=== PATIENT | male | born 1965 | race Caucasian/White ===

== ENCOUNTER 2018-07-16 08:31 | Emergency (ER) | payer OTHER ==
[2018-07-16 08:43] VITALS: BP 152/87
--- NOTE | 2018-07-17 08:16 | UC ---
Discharge - Sign-Out/Discharge Documenting (check all that apply): Post-Discharge Follow Up All imaging exams completed and their final reports reviewed: No Studies - Discharge Plan Disposition: LEFT WITHOUT BEING SEEN Referrals: Ulisses Middleton MD [Primary Care Provider] - - Billing Disposition and Condition Disposition: Left Without Being Seen
== END 2018-07-16 08:48 | disposition left against medical advice (07) ==
LOC: UCEAST 08:31
DX: Z53.21 Procedure and treatment not carried out due to patient leaving prior to being seen by health care provider (principal)

== ENCOUNTER 2023-05-07 07:55 | Inpatient (IN) ==
[2023-05-07 08:28] LABS: ABS Basophils 0.1 10^3/uL (0.0-0.1); ABS Eosinophils 0.1 10^3/uL (0.0-0.5); ABS Lymphocytes 1.1 10^3/uL (1.0-4.8); ABS Monocytes 0.5 10^3/uL (0.0-1.1); ABS Neutrophils 4.3 10^3/uL (1.5-7.6); Eosinophil % 2.3 %; Hematocrit 45.3 % (38-53); Hemoglobin 16.1 g/dL (13.2-16.3); Lymphocyte % 18.7 %; Mean Corpuscular Hemoglobin 34.1 pg (27-33); Mean Corpuscular Hgb Conc 35.6 g/dL (31-36); Mean Corpuscular Volume 95.8 fL (80-97); Mean Platelet Volume 8.5 fL (7.5-11.2); Nucleated Red Blood Cells % 0.1 /100 WBC (0.0-0.4); Platelet Count 186 10^3/uL (150-450); Red Blood Count 4.72 10^6/uL (4.06-5.63); Red Cell Distribution Width 12.6 % (12-17); White Blood Count 6.1 10^3/uL (3.6-10.2)
[2023-05-07 08:31] LABS: INR 1.03 (0.83-1.13)
[2023-05-07 08:37] LABS: Albumin 4.2 g/dL (3.2-5.2); Potassium 3.6 mmol/L (3.5-5.0); Total Bilirubin 0.8 mg/dL (0.2-1.0)
[2023-05-07 08:43] LABS: Albumin/Globulin Ratio 1.3 (1-3); Creatinine, Serum 0.98 mg/dL (0.67-1.17); Globulin 3.3 g/dL (2-4); Total Protein 7.5 g/dL (6.4-8.9); eGFR CKD-EPI 88.8 (>60)
[2023-05-07] MEDS ORDERED: Heparin DRIP 25,000 UNITS BAG 25,000 UNITS/500 ML BAG IV SCH (09:15)
[2023-05-07 09:55] LABS: High Sensitivity Troponin 1 Hr 746 pg/mL (<20)
[2023-05-07] MEDS ORDERED: Heparin 5000 UNITS/ML 1 mL VIAL IV SCH (10:00)
[2023-05-07] MEDS ORDERED: nitroGLYCERIN DRIP 25,000 MCG/250 ML BTL IV SCH (10:00)
[2023-05-07] MEDS ORDERED: fentaNYL 100 mcg/2 ml 50 MCG/ML VIAL IV SLOW PU ONE (11:10)
[2023-05-07] MEDS ORDERED: Midazolam 10 mg/10 ml VIAL 1 mg/ml 10 ml VIAL (10 mg) IV SLOW PU ONE (11:10)
[2023-05-07] MEDS ORDERED: Midazolam 5 mg/5 ml VIAL 1 mg/ml 5 ml VIAL (5 mg) ONE (11:28)
[2023-05-07] MEDS ORDERED: Heparin 2 UNITS/ML 1000 mls 2,000 ML IV ONE (11:29)
[2023-05-07] MEDS ORDERED: Heparin 1,000 UNIT/ML 10 ml (10,000 UNITS) CATHLAB/DIALYSIS ONE (11:29)
[2023-05-07] MEDS ORDERED: Iohexol 350 (CONTRAST) 100 ML PAK IV ONE (11:29)
[2023-05-07] MEDS ORDERED: fentaNYL 100 mcg/2 ml 50 MCG/ML VIAL ONE (11:29)
[2023-05-07] MEDS ORDERED: Lidocaine 1% MPF 5 ML VIAL ONE (11:29)
[2023-05-07] MEDS ORDERED: VERAPAMIL 2.5 MG/ML 2 ML VIAL ** 5 mg/2 ml ONE (11:29)
[2023-05-07] MEDS ORDERED: Iohexol 350 (CONTRAST) 200 ML MDV IV ONE (11:30)
[2023-05-07] MEDS ORDERED: Bivalirudin 250 MG VIAL ONE ×2 (12:16→13:05)
[2023-05-07] MEDS ORDERED: NS 0.9% 1000 ml BAG 1,000 ML IV SCH (13:30)
[2023-05-07] MEDS: Enoxaparin 40 MG/0.4 ML SYR SUBCUT SCH (20:31)
[2023-05-08 04:18] LABS: ABS Basophils 0.1 10^3/uL (0.0-0.1); ABS Eosinophils 0.2 10^3/uL (0.0-0.5); ABS Lymphocytes 1.6 10^3/uL (1.0-4.8); ABS Monocytes 0.9 10^3/uL (0.0-1.1); ABS Neutrophils 5.2 10^3/uL (1.5-7.6); Eosinophil % 2.9 %; Hematocrit 42.3 % (38-53); Lymphocyte % 19.9 %; Mean Corpuscular Hemoglobin 34.2 pg (27-33); Mean Corpuscular Hgb Conc 35.6 g/dL (31-36); Mean Platelet Volume 8.6 fL (7.5-11.2); Platelet Count 174 10^3/uL (150-450); Red Cell Distribution Width 12.8 % (12-17)
[2023-05-08 04:31] LABS: Calcium 8.5 mg/dL (8.6-10.3); Magnesium 1.9 mg/dL (1.9-2.7); Potassium 3.7 mmol/L (3.5-5.0)
[2023-05-08 04:37] LABS: Creatinine, Serum 0.86 mg/dL (0.67-1.17); eGFR CKD-EPI 99.7 (>60)
[2023-05-08] MEDS ORDERED: Sulfur Hexaflouride MICROSPHR 25 MG VIAL ONE (08:37)
[2023-05-08 13:42] LABS: HDL Cholesterol 44.5 mg/dL
[2023-05-08] MEDS: Enoxaparin 40 MG/0.4 ML SYR SUBCUT SCH (20:51)
[2023-05-09 15:24] VITALS: BP 105/69
== END 2023-05-09 18:10 | disposition home or self-care (01) | DRG 247 ==
LOC: ED 07:55 → CHICATH 11:37 → SUATTDRO 13:47 → ICU 13:47 → MEDTELE 05-08 19:21
PROVIDERS: ADMIT Internal Medicine; ATTEND Internal Medicine